=== PATIENT | female | born 1970 | race Two or more races ===

== ENCOUNTER 2024-08-30 07:04 | Emergency (ER) | payer OTHER ==
[~2024-08-30] VITALS: Ht 167.6 cm; Wt 80.7 kg
[2024-08-30] MEDS ORDERED: CLINDAMYCIN PHOSPHATE 150 MG/ML (300mg) ONE (09:04)
[2024-08-30] MEDS ORDERED: KETOROLAC TROMETHAMINE 60 MG VIAL IM ONE ×2 (09:05→09:15)
[2024-08-30] MEDS ORDERED: DIPHTH,PERTUSS(ACELL),TET VAC 0.5 ML SYRINGE IM ONE (09:05)
[2024-08-30] MEDS ORDERED: DIPHTH,PERTUSS(ACELL),TET VAC 0.5 ML VIAL IM ONE (09:15)
[2024-08-30] MEDS ORDERED: CLINDAMYCIN PHOSPHATE 150 MG/ML (600mg) IV ONE (09:15)
[2024-08-30] MEDS ORDERED: MONDOXYNE NL100 MG PO (11:11)
[2024-08-30] MEDS ORDERED: IBUPROFEN800 MG PO (11:11)
== END 2024-08-30 11:18 | disposition home or self-care (01) ==
LOC: ER 07:15
DX: S61.451A Open bite of right hand, initial encounter (principal); W54.0XXA Bitten by dog, initial encounter; Y93.89 Activity, other specified; Y92.89 Other specified places as the place of occurrence of the external cause; Y99.8 Other external cause status; I10 Essential (primary) hypertension; E11.9 Type 2 diabetes mellitus without complications; Z88.0 Allergy status to penicillin
CPT/HCPCS: 73130; 90471; 90714; J1670